=== PATIENT | male | born 1995 | race Two or more races ===

== ENCOUNTER 2016-08-01 17:55 | Emergency (ER) | payer BC, OTHER ==
[2016-08-01] MEDS ORDERED: Acetaminophen 500 MG Tab PO ONE (18:52)
--- NOTE | 2016-08-01 19:24 | EDM.PDOC ---
ED HISTORY OF PRESENT ILLNESS - General Chief Complaint: Respiratory Problem Stated Complaint: TROUBLE BREATHING /SORE THROAT Time Seen by Provider: 08/01/16 19:06 Source of Information: Reports: Patient History Limitations: Reports: No limitations - History of Present Illness INITIAL COMMENTS - FREE TEXT/NARRATIVE: HISTORY AND PHYSICAL: History of present illness: [21-year-old male with a past medical history occasionally smoking but by his description less than once a week, now presents emergency department complaining of productive cough x5 days with streak of blood in sputum today. Patient states she's having coughing fits which is sometimes difficult to stop. taking Mucinex DM with subtotal relief.] No fevers chills sweats or shaking chills. No exertional chest pain. No pleuritic pain. No shortness of breath except during a coughing fit. She denies other medical problems he does not have a bleeding problem or take blood thinners Review of systems: As per history of present illness and below otherwise all systems reviewed and negative. Past medical history: As per history of present illness and as reviewed below otherwise noncontributory. Surgical history: As per history of present illness and as reviewed below otherwise noncontributory. Social history: No reported history of drug or alcohol abuse. Family history: As per history of present illness and as reviewed below otherwise noncontributory. Physical exam: Well-appearing patient in no acute distress sitting comfortably conversant with no tachypnea, normal respiratory rate and pulse ox HEENT: Atraumatic, normocephalic, pupils reactive, negative for conjunctival pallor or scleral icterus, mucous membranes moist, throat clear, neck supple, nontender, trachea midline. Lungs: Clear to auscultation, breath sounds equal bilaterally, chest nontender. Heart: S1S2, regular, negative for clicks, rubs, or JVD. Abdomen: Soft, nondistended, nontender. Negative for masses or hepatosplenomegaly. Negative for costovertebral tenderness. Pelvis: Stable nontender. Genitourinary: Deferred. Rectal: Deferred. Extremities: Atraumatic, negative for cords or calf pain. Neurovascular unremarkable. Neuro: Awake, alert, oriented. Cranial nerves grossly unremarkable. Cerebellum unremarkable. Motor and sensory unremarkable throughout. Exam nonfocal. Diagnostics: [] Therapeutics: [] Impression: [] Plan: [] Definitive disposition and diagnosis as appropriate pending reevaluation and review of above. - Related Data Allergies/ADRs: Allergies Allergy/AdvReac Type Severity Reaction Status Date / Time No Known Allergies Allergy Verified 11/16/15 16:47 Home Meds: Home Meds Azithromycin [Zithromax] 250 mg PO DAILY #6 tablet 08/01/16 [Rx] Benzonatate 200 mg PO TID #30 capsule 08/01/16 [Rx] Past Medical History - Past Health History Medical/Surgical History: Denies Medical/Surgical History - Infectious Disease History Infectious Disease History: Reports: Chicken pox - Past Surgical History Head Surgeries/Procedures: Reports: None Musculoskeletal Surgical History: Reports: Shoulder surgery, Other (see below) Other Musculoskeletal Surgeries/Procedures:: collar bone surgery Social & Family History - Family History Family Medical History: Noncontributory - Tobacco Use Smoking Status *Q: Current Every Day Smoker Years of Tobacco use: 2 Packs/Tins Daily: 0.5 - Caffeine Use Caffeine Use: Reports: Coffee - Recreational Drug Use Recreational Drug Use: No ED ROS GENERAL - Review of Systems Review Of Systems: See Below (Per history of present illness) ED EXAM, GENERAL - Physical Exam Exam: See Below (Per history of present illness) Course - Vital Signs Text/Narrative:: 21-year-old male now with signs and symptoms consistent with respiratory infection. Productive cough no hypoxia or tachypnea rapid strep positive. This patient clinically well-appearing will treat with Zithromax. Patient is aware to control cough with Mucinex DM and Tessalon which we prescribed here today. Chest x-ray with no infiltrate or acute abnormality interpreted by me report reviewed .Trace hemoptysis by history transient and characterized by spontaneous resolution. He will followup with PCP in one day and strict return precautions were given. Last Recorded V/S: Last Vital Signs Temp 37.7 C 08/01/16 20:20 Pulse 70 08/01/16 20:20 Resp 16 08/01/16 20:20 BP 106/53 L 08/01/16 20:20 Pulse Ox 95 08/01/16 20:20 - Orders/Labs/Meds Orders: Active Orders 24 hr Category Date Time Status Chest 1V Frontal [CR] Stat Exams 08/01/16 19:20 Taken Meds: Medications Discontinued Medications Generic Name Dose Route Start Last Admin Trade Name Freq PRN Reason Stop Dose Admin Acetaminophen 1,000 mg 08/01/16 18:52 08/01/16 18:59 Tylenol Extra Strength PO 08/01/16 18:53 1,000 mg ONETIME ONE Administration Departure - Departure Time of Disposition: 20:10 Disposition: Home, Self-Care 01 Condition: good Clinical Impression: Strep pharyngitis, Bronchitis, Cough with hemoptysis Prescriptions: Azithromycin [Zithromax] 250 mg PO DAILY #6 tablet Benzonatate 200 mg PO TID #30 capsule Instructions: Strep Throat Referrals: PCP,None [Primary Care Provider] - Forms: ED Department Discharge Additional Instructions: Your throat swab was positive for strep. Finish Zithromax as prescribed use Mucinex DM as needed for cough and to loosen mucus secretions. Use Tessalon as needed for persistent cough. Rest and drink plenty of fluids. Followup with your Dr. in the next one to 2 days. Return for new severe or worsening symptoms - My Orders Last 24 Hours: My Active Orders 08/01/16 19:20 Chest 1V Frontal [CR] Stat - Assessment/Plan Last 24 Hours: My Active Orders 08/01/16 19:20 Chest 1V Frontal [CR] Stat
[2016-08-01 20:25] VITALS: BP 106/53
--- NOTE | 2016-08-02 13:58 | CR ---
EXAM DATE: 08/01/16 PATIENT'S AGE: 21 Patient: [facility] Facility: [place], [place] Site . Site : 1995 Study: XRay Chest [id number]/[id number] 7:49:54 PM Ordering Physician: Medardo Burroughs Final Report: INDICATION: cough for one week, coughed up blood last night, fever TECHNIQUE: Chest 1 view COMPARISON: None FINDINGS: Cardiovascular and mediastinum: Heart size and vasculature are normal in caliber and appearance. Mediastinum is within normal limits. Lungs and pleural space: No focal consolidation. No sign of pleural effusion. No pneumothorax. Bones and soft tissues: No significant findings. IMPRESSION: No acute cardiopulmonary disease. Dictated by Adonis Lindsey MD @ 08/01/2016 7:56:50 PM Dictated by: Adonis Lindsey MD @ 08/01/2016 19:57:01 (Electronic Signature) Report Signed by Proxy and Original Signed Document filed in the Medical Record. MTDD
== END 2016-08-01 20:20 | disposition home or self-care (01) ==
LOC: MW.ED 17:55
DX: J40 Bronchitis, not specified as acute or chronic (principal); J02.0 Streptococcal pharyngitis; F17.210 Nicotine dependence, cigarettes, uncomplicated; Z79.899 Other long term (current) drug therapy
CPT/HCPCS: 71010; 87804; 87880; 99285; A9270; 99283